=== PATIENT | female | born 1975 | race Two or more races ===

== ENCOUNTER 2024-01-23 21:50 | Emergency (ER) | payer OTHER ==
[~2024-01-23] VITALS: Ht 162.6 cm; Wt 115.6 kg
[2024-01-23 23:00] VITALS: BP 158/88; RESP 23; TEMP 97.9; O2SAT 97
[2024-01-23 23:12] VITALS: PULSE 62
== END 2024-01-23 23:00 | disposition home or self-care (01) ==
LOC: ER 21:50
DX: I10 Essential (primary) hypertension (principal); E11.9 Type 2 diabetes mellitus without complications
CPT/HCPCS: 93005